=== PATIENT | female | born 1950 | race Caucasian/White ===

== ENCOUNTER → 2024-02-20 09:39 | Outpatient (BNVA) | payer MEDICARE, BC, SELFPAY | PROVIDERS: PCP Student in an Organized Health Care Education/Training Program; Referring Provider Student in an Organized Health Care Education/Training Program; Visit Provider Physical Therapy Assistant | DX: Z12.11 Encounter for screening for malignant neoplasm of colon (principal) ==

== ENCOUNTER 2024-03-06 10:33 | Day surgery (SDC) | payer MEDICARE, BC, SELFPAY ==
[2024-03-06 11:36] VITALS: BP 153/74; PULSE 64; RESP 18; TEMP 36.6; O2SAT 99
[2024-03-06] MEDS: Lactated Ringers 1,000 ML 80 ML IV (12:06)
--- NOTE | 2024-03-06 12:29 | W.ANESPRE ---
General Info Date of Service Date Performed: 03/06/24 Height: 5 ft 4 in Weight: 107 kg Body Mass Index (BMI): 40.4 Surgical Procedure: Operation Date: 03/06/24 11:50 Proposed Procedure Side Surgeon p Burton Burton, Meds Allergies and Home Medications Allergies Allergy/AdvReac Type Severity Reaction Status Date / Time acetaminophen (From Vicodin) Allergy Hives Verified 03/06/24 11:23 atorvastatin (From Lipitor) Allergy Leg Verified 03/06/24 11:23 pain/weakness codeine Allergy Hives Verified 03/06/24 11:23 estrogens, conjugated (From Allergy Nausea, Verified 03/06/24 11:23 Premarin) bloating, cramps hydrocodone Allergy Hives Verified 03/06/24 11:23 simvastatin (From Zocor) Allergy Leg Verified 03/06/24 11:23 pain/weakness strawberry Allergy Hives Verified 03/06/24 11:23 bupropion AdvReac Unable to Verified 03/06/24 11:23 tolerate niacin AdvReac Increased Verified 03/06/24 11:23 [facility] Home Medication ?Medication ?Instructions ?Recorded cholecalciferol (vitamin D3) 25 25 mcg PO DAILY 11/21/23 mcg (1,000 unit) capsule enalapril maleate 20 mg tablet 40 mg PO DAILY 11/21/23 fexofenadine 180 mg tablet 180 mg PO DAILY PRN 11/21/23 (Stephanie Allergy) hydrochlorothiazide 25 mg tablet 25 mg PO DAILY 11/21/23 levothyroxine 125 mcg capsule 125 mcg PO DAILY 11/21/23 omega-3 fatty acids-fish oil 360 1 cap PO DAILY 11/21/23 mg-1,200 mg capsule peg 400-propylene glycol (PF) 0.4 1 drp ophthalmic (eye) BID-QID PRN 11/21/23 %-0.3 % eye drops in a dropperette (Systane (PF)) rosuvastatin 5 mg tablet 5 mg PO DAILY 11/21/23 citalopram 20 mg tablet 20 mg PO DAILY #90 tabs 01/24/24 bisacodyl 5 mg tablet,delayed 5 mg PO ONCE Colonoscopy Bowel 02/20/24 release Prep #4 tabs uvoxrzhv-pwspkpe-jpjx-lutein tablet tab PO 02/20/24 polyethylene glycol 3350 17 238 g PO ONCE #238 grams 02/20/24 gram/dose oral powder Current Visit Medications: Current Medications Generic Name Dose Route Start Last Admin Trade Name Freq PRN Reason Stop Dose Admin Hyoscyamine Sulfate 0.125 mg 03/06/24 08:32 Hyoscyamine 0.125 Mg Sl/Oral/Chew SL 04/05/24 08:31 DIRECTED PRN Ringer's Solution 1,000 mls @ 80 mls/hr 03/06/24 06:00 03/06/24 12:06 IV 03/06/24 23:59 80 mls/hr INFUSION VIK Administration IV Miscellaneous Supplies 1 each 03/06/24 06:00 Iv Access IV 03/06/24 23:59 DIRECTED VIK Ondansetron HCl 4 mg 03/06/24 08:32 Ondansetron 4 Mg/2 Ml Vial IVP 04/05/24 08:31 Q4H PRN PRN Nausea / Vomiting Sodium Chloride 0 ml 03/06/24 06:00 Normal Saline Flush 10 Ml Syr IV 03/06/24 23:59 PRN PRN Sodium Chloride 0 ml 03/06/24 06:00 Normal Saline 10 Ml Vial IJ 03/06/24 23:59 DIRECTED PRN Sterile Water 0 ml 03/06/24 06:00 Water,Injection,Sterile 10 Ml Vial IJ 03/06/24 23:59 DIRECTED PRN PFSH Active Problems Active Problems: Problem Status Onset Code Precancerous skin lesion Acute L98.9 Cataracts, both eyes Acute H26.9 BPPV (benign paroxysmal positional vertigo) Acute H81.10 Weight loss Acute R63.4 Hypothyroidism Chronic E03.9 Essential hypertension Acute I10 Major depressive disorder Chronic F32.9 Medical History Medical History Overweight 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 Osteopenia (05/2016) -2.3 Adenomatous colon polyp (02/2015) Infection of right prosthetic hip joint Surgical History Surgical History History of total right knee replacement (11/2007) Hx of cholecystectomy (2013) History of left hip replacement (11/2005) History of right hip replacement (2011) Tobacco Smoking/Tobacco Use Status: Former Tobacco Use Alcohol Alcohol Intake: current Alcohol intake frequency: holidays/special occasions only Substance Use Substance use: Never Vital Signs and Lab Results Vital Signs Most Recent Vital Signs in EMR: Most Recent Vital Signs Temp Pulse Resp BP Pulse Ox 36.6 C 64 18 153/74 H 99 03/06/24 11:36 03/06/24 11:36 03/06/24 11:36 03/06/24 11:36 03/06/24 11:36 Lab Results Blood Type / Crossmatch: No Data to Display Complete Blood Count: No Data to Display Complete Metabolic Panel: No Data to Display Liver Function Panel: No Data to Display Coagulation Panel: No Data to Display Cardiac Panel: No Data to Display Arterial Blood Gas: No Data to Display Venous Blood Gas: No Data to Display Pancreas Panel: No Data to Display Thyroid Panel: No Data to Display Infectious Disease: No Data to Display Blood Cultures: No Data to Display Toxicology Panel: No Data to Display Anesthesia Assessment and Plan Anesthesia History Personal History: No History of Anesthesia Complications Family History: No Family History of Anesthesia Complications Exercise Tolerance Exercise Tolerance: Metabolic Equivalents>4 Pertinent Negatives Pertinent Negatives: No Symptoms of GERD, No Major Cardiovascular Symptoms or Complaints and No Major Pulmonary Symptoms or Complaints Cardiac & Pulmonary Exam Cardiac Exam: Normal S1/S2 Heart Sounds Pulmonary Exam: Clear Bilateral Breath Sounds Implantable Cardiac Device Does patient have a Pacemaker or an ICD?: No Airway Exam Known Difficult Airway: No Mallampati Class: 2 Mouth Opening: Normal (> 3cm) Thyromental Distance: Greater than 3 cm Neck Range of Motion: Full ROM Neck Circumference: Thick Teeth Condition: Normal Dentition ASA Classification ASA Score: ASA 3 Emergency Case?: No NPO Status NPO Status: NPO Clears >2 hours, Solids >8 hours Anesthesia Plan Resuscitation Status: Full Code Anesthesia Technique: General Anesthesia Airway Planned: Natural Airway Monitors Used: Standard Monitors
--- NOTE | 2024-03-06 13:03 | W.COLOREPORT ---
Date of service: 03/06/24 Time of Service: 13:03 Colonoscopy Report Date of procedure: 03/06/24 Pre-op diagnosis general: History of advanced adenoma Post-op diagnosis procedure note: other (Diverticula) Surgeon: Renita Burton Anesthesia Type: General:No Airway Estimated blood loss (mL): 0 Pathology: none sent Complications: None Disposition: same day Prep: Miralax/Dulcolax Retraction Time: 9 Procedure Description: After informed consent was obtained, explaining risks of the procedure, including but not limits to: bleeding, infections, complications of anesthesia, perforations (which may require antibiotics and /or surgery and stay in the hospital), and abdominal pain/cramping. The patient was taken to the procedure room and placed in a left decubitous position. Monitors were applied and a time out was done. The patients name, date of , procedure, allergies to medications and metal in their body was reviewed. The patient was then sedated. Once sedated and comfortable a rectal exam was done. External exam was normal. Internal exam revealed a normal sphincter tone and no palpable masses. The previously lubricated Olympus scope was then introduced (see RN notes for scope number) and retrofelexed. no internal hemorrhoids were identified. The scope was then advanced to the cecum without difficulty. The TI and appendiceal orifice were identified. The scope was then slowly retracted over 9 minutes back into the rectum. Polyps: None. Diverticula: pt had a moderate amount of large mouthed diverticula in the sigmoid colon. There were no signs of active bleeding or infection. The mucosa is pink and healthy w/ a normal vascular pattern. The scope was removed, and the patient was woken up and taken back to Same day surgery in stable condition. The patient tolerated the procedure well and there were no immediate complications. Follow up: The patient does not require any repeat colonoscopies, unless they develop changes in bowel habits or other new gastrointestinal complaints. [place] Bowel Prep [place] Bowel Prep Right Colon: 3 Left Colon: 2 Transverse Colon: 3 Total Score: 8
[2024-03-06 13:09] VITALS: BMI 40.4
[2024-03-06 13:40] VITALS: BP 111/66; PULSE 60; RESP 20; TEMP 36.7; O2SAT 99
--- NOTE | 2024-03-06 13:51 | PDOC.DSDIS_ITS ---
Date of service: 03/06/24 Time of Service: 13:51 Discharge Plan Disposition Patient Disposition: Home Condition: Good Discharge Details Reason For Visit: Colon scope Attending Provider: Renita Burton Primary Care Provider: Maura Duggan Home Meds and New Rx's Prescriptions: Continued busbrhrg-usdepkb-wamd-lutein Tablet PO enalapril maleate 20 mg tablet 40 mg PO DAILY rosuvastatin 5 mg tablet 5 mg PO DAILY hydrochlorothiazide 25 mg tablet 25 mg PO DAILY levothyroxine 125 mcg capsule 125 mcg PO DAILY omega-3 fatty acids-fish oil 360-1,200 mg capsule 1 cap PO DAILY cholecalciferol (vitamin D3) 25 mcg (1,000 unit) capsule 25 mcg PO DAILY fexofenadine [Stephanie Allergy] 180 mg tablet 180 mg PO DAILY PRN Systane (PF) 0.4-0.3 % dropperette 1 drp ophthalmic (eye) BID-QID PRN citalopram 20 mg tablet 20 mg PO DAILY Qty: 90 3RF Discontinued bisacodyl 5 mg tablet,delayed release (DR/EC) 5 mg PO ONCE Qty: 4 0RF Rx Instructions: Per Colonoscopy bowel prep instructions polyethylene glycol 3350 17 gram/dose powder 238 g PO ONCE Qty: 238 0RF Rx Instructions: For Colonoscopy bowel prep, as directed by office Discharge Instructions Additional Instructions: [facility] Colonoscopy Post- Op Instructions Instructions for Everyone who is given Anesthesia: For your safety, please do the following for the next twenty-four (24) hours: *Do Not operate a motor vehicle (car, truck, motorcycle, etc.) *Do Not drink alcoholic beverages or use any recreational drugs for the first 24 hours or while taking pain medications. The medications in your body may have a reaction that can be dangerous. *Do Not make any important decisions or sign any important papers. Findings: Diverticula-sure you are moving your bowels on a regular basis and not straining to go to the bathroom. If you find you are having problems with straining/constipation, that is recommended you start a fiber supplement daily such as Metamucil. Follow up: No further routine screening colonoscopies required Of course, you should continue to have a yearly physical exam including a rectal exam. If you should ever notice any pain or difficulty having a bowel movement, blood in the stool, unexplained weight loss, or change in your bowel habits, please contact your health provider. 1. No lifting over 20 pounds or strenuous activity for the first 24 hours after your procedure. After 24 hours there are no restrictions on your activity but you may feel fatigued for a few days. 2. After you arrive home you may have a light meal and return to your normal diet as you can tolerate it without feeling sick to your stomach. 3. You may have a bloated, gaseous feeling in your belly (abdomen) after a co lonoscopy. Passing gas and belching will help. Walking or lying down on your left side with your knees flexed may relieve the discomfort. Call the office at [phone] (Office) or [phone] (Hospital) right away if you notice any of the following: a.Vomiting of blood or ?coffee ground stools?. b.Rectal bleeding 1Tbsp, blood clots or continuous bleeding. c.Severe belly (abdominal) pain. d.A hard distended belly (abdomen) and an inability to pass gas. 4. Please don?t expect to have a normal BM (bowel movement) for 2-3 days after your procedure. 5. If there are questions regarding the findings of your procedure, please contact your doctor 6. If you are unable to contact your doctor with a problem, contact the hospital at [phone]. 7. Continue all your regular medications unless directed otherwise. I understand the above instructions and have no questions. Signature of Patient or Adult Escort Name of Responsible Adult Escort Signature of Nurse Date/Time Stand Alone Forms: Anesthesia Discharge Inst., Maurice Ferrell ([facility]) Activity:: see above Diet:: see above Discharge Orders Discharge Orders: Discharge Order (Routine); Ordered 03/06/24 Ordered By: Renita Burton DS: Diagnosis Discharge Diagnosis (1) Diverticula of colon: Status: Acute
[2024-03-06 14:01] VITALS: BP 143/74; PULSE 56; RESP 18; TEMP 36.7; O2SAT 100
--- NOTE | 2024-03-06 14:41 | W.ANESPOSTOP ---
Postoperative Evaluation Date, Time and Location Date Performed: 03/06/24 Time Performed: 14:04 Patient Location: Day Surgery Unit Vital Signs Most Recent Imported Vital Signs: Most Recent Vital Signs Temp Pulse Resp BP Pulse Ox 36.7 C 56 L 18 143/74 H 100 03/06/24 14:01 03/06/24 14:01 03/06/24 14:01 03/06/24 14:01 03/06/24 14:01 Pain Score Most Recent Pain Score: Most Recent Pain Score Pain Level 0 03/06/24 14:01 Assessment Mental Status: Awake (Alert & Oriented to Patient Baseline) Airway and Respiratory Function: Patent airway with normal (patient baseline) respiratory exam Cardiovascular Function: Hemodynamically Stable Hydration Status: Adequately Hydrated Nausea & Vomiting: No Nausea or Vomiting Pain: Pt. Denies Any Pain Peripheral Nerve Block: Patient did not receive a nerve block
== END 2024-03-06 14:20 | disposition home or self-care (01) ==
PROVIDERS: PCP Student in an Organized Health Care Education/Training Program; Visit Provider Surgery
PROC: 0DJD8ZZ Inspection of Lower Intestinal Tract, Via Natural or Artificial Opening Endoscopic (ICD-10-PCS; CPT 45378; principal; 2024-03-06 11:45)
DX: Z12.11 Encounter for screening for malignant neoplasm of colon (principal); K57.30 Diverticulosis of large intestine without perforation or abscess without bleeding
CPT/HCPCS: G0105; J2371; J2704

== ENCOUNTER 2024-03-11 02:38 | Outpatient (CLI) | payer MEDICARE, BC, SELFPAY ==
[2024-03-11 09:15] LABS: HCT 39.2 % (36.0-46.0); HGB 12.7 g/dL (11.2-15.7); MCH 30.9 pg (27.0-33.0); MCHC 32.4 % (32.0-36.0); MCV 95 fL (80-95); Platelet Count 274 10^3/uL (130-400); RBC 4.11 10^6/uL (3.93-5.22); RDW 12.7 % (11.7-14.6); RDW-SD 44.9 fL; WBC 4.58 10^3/uL (4.4-10.8)
[2024-03-11 09:59] LABS: ALT 26 U/L (14-59); AST 24 U/L (15-37); Albumin 3.4 g/dL (3.4-5.0); Alkaline Phosphatase 92 U/L (46-116); Anion Gap 5.1 mmol/L (3-11); BUN 27 mg/dL (7-18); Bilirubin, Total 0.41 mg/dL (0.2-1.0); CO2 30.9 mmol/L (21.0-32.0); CREATININE 0.9 mg/dL (0.55-1.02); Calcium 9.4 mg/dL (8.5-10.1); Calculated LDL 105 mg/dL (<100); Chloride 96 mmol/L (98-107); Cholesterol 202 mg/dL (<200); Estimated GFR 67.08 (mL/min/1.73m2); Glucose 89 mg/dL (74-106); HDL Cholesterol 79 mg/dL (40-60); Potassium 4.6 mmol/L (3.5-5.1); Sodium 132 mmol/L (136-145); TSH (W/Ref FT4) 2.09 uIU/mL (0.36-3.74); Total Protein 7.4 g/dL (6.4-8.2); Triglyceride 92 mg/dL (<150); Vitamin D 25 Total 48.2 ng/mL (30-100)
== END 2024-03-11 02:39 | disposition home or self-care (01) ==
LOC: LBO 02:38
PROVIDERS: PCP Student in an Organized Health Care Education/Training Program; Visit Provider Student in an Organized Health Care Education/Training Program
DX: F32.9 Major depressive disorder, single episode, unspecified (principal); I10 Essential (primary) hypertension; E03.9 Hypothyroidism, unspecified; E66.3 Overweight; Z13.220 Encounter for screening for lipoid disorders; K90.9 Intestinal malabsorption, unspecified
CPT/HCPCS: 36415; 80053; 80061; 82306; 85027; 84443

== ENCOUNTER → 2024-06-16 08:35 | Outpatient (BNVA) | payer MEDICARE, BC, SELFPAY | PROVIDERS: PCP Student in an Organized Health Care Education/Training Program; Referring Provider Student in an Organized Health Care Education/Training Program; Visit Provider Psychiatry & Neurology Neurology | DX: H81.13 Benign paroxysmal vertigo, bilateral (principal) | CPT/HCPCS: 99214 ==

== ENCOUNTER 2024-07-13 15:48 | Outpatient (CLI) | payer MEDICARE, BC, SELFPAY ==
--- NOTE | 2024-07-13 10:30 | DI.RAD_ITS ---
Exam(s) XR KNEE LT 4V AP,LAT,TARAS,PAT EXAM: XR KNEE LT 4V AP,LAT,TARAS,PAT CLINICAL HISTORY: left knee pain. TECHNIQUE: 2D digital imaging was performed of the left knee. Four images were obtained. Merchant, AP, lateral and PA tunnel views were obtained. COMPARISON: No exams were available for comparison FINDINGS: BONES: No acute fracture is present. No bony destructive lesion is seen. There is benign-appearing s imple cysts seen in the lateral femoral condyle. JOINTS: There is moderate narrowing of the lateral femoral tibial joint. There is marked narrowing o f the patellofemoral joint. There osteophytes involving the lateral femoral tibial patellofemoral elie ints. No joint effusion is seen. No loose body. SOFT TISSUE: Atherosclerotic calcification is present. IMPRESSION: Marked osteoarthritis of the left knee. DATA REPOSITORY: RADIATION DOSE DELIVERED:
--- NOTE | 2024-07-13 10:30 | DI.RAD_ITS ---
Exam(s) XR HIP LT COMPLETE AP PELVIS EXAM: XR HIP LT COMPLETE AP PELVIS CLINICAL HISTORY: left TOMMIE. TECHNIQUE: 2D digital imaging was performed. Two images were obtained. AP pelvis and lateral left h ip views were obtained. COMPARISON: No exams were available for comparison FINDINGS: BONES: There are stable post operative changes of a left total hip arthroplasty present. No fracture or dislocation. There is some deformity of the left pubic bone which may represent an old healed fra cture deformity. The patient has a right total hip arthroplasty which is incompletely imaged. JOINTS: The orthopedic hardware is in good position. No evidence of hardware loosening. SOFT TISSUE: Normal. IMPRESSION: Unremarkable left total hip arthroplasty. DATA REPOSITORY: RADIATION DOSE DELIVERED:
== END 2024-07-13 15:49 | disposition home or self-care (01) ==
LOC: DIORS 15:48
PROVIDERS: PCP Family Medicine; Referring Provider Family Medicine; Visit Provider Student in an Organized Health Care Education/Training Program
DX: M17.12 Unilateral primary osteoarthritis, left knee; M70.62 Trochanteric bursitis, left hip
CPT/HCPCS: 20610; 99213; J1010; 73502; 73564

== ENCOUNTER 2024-07-31 09:44 | Day surgery (SDC) | payer MEDICARE, BC, SELFPAY ==
[2024-07-31] VITALS (24 sets, daily range): BP systolic 89–128; BP diastolic 37–71; PULSE 52–65; RESP 14–24; TEMP 36.2–36.6; O2SAT 94–100; BMI 41.7
[2024-07-31] MEDS: Tropicam./Phenyleph. (1/2.5%) 5 ML BTL OU ×3 (10:34→10:50)
--- NOTE | 2024-07-31 10:53 | W.ANESPRE ---
General Info Date of Service Date Performed: 07/31/24 Height: 5 ft 4 in Weight: 110.3 kg Body Mass Index (BMI): 41.7 Surgical Procedure: Operation Date: 07/31/24 13:10 Proposed Procedure Side Surgeon p Cataract Extraction with IOL Implant Bilateral Alexandru Lee MD Meds Allergies and Home Medications Allergies Allergy/AdvReac Type Severity Reaction Status Date / Time atorvastatin (From Lipitor) Allergy Leg Verified 07/31/24 10:26 pain/weakness codeine Allergy Hives Verified 07/31/24 10:26 estrogens, conjugated (From Allergy Nausea, Verified 07/31/24 10:26 Premarin) bloating, cramps hydrocodone Allergy Hives Verified 07/31/24 10:26 simvastatin (From Zocor) Allergy Leg Verified 07/31/24 10:26 pain/weakness strawberry Allergy Hives Verified 07/31/24 10:26 bupropion AdvReac Unable to Verified 07/31/24 10:26 tolerate niacin AdvReac Increased Verified 07/31/24 10:26 [facility] Home Medication ?Medication ?Instructions ?Recorded cholecalciferol (vitamin D3) 25 25 mcg PO DAILY 11/21/23 mcg (1,000 unit) capsule fexofenadine 180 mg tablet 180 mg PO DAILY PRN 11/21/23 (Stephanie Allergy) omega-3 fatty acids-fish oil 360 1 cap PO DAILY 11/21/23 mg-1,200 mg capsule peg 400-propylene glycol (PF) 0.4 1 drp ophthalmic (eye) BID-QID PRN 11/21/23 %-0.3 % eye drops in a dropperette (Systane (PF)) citalopram 20 mg tablet 20 mg PO DAILY #90 tabs 01/24/24 xaiiczfg-ejungkt-yrvk-lutein tablet 1 tab PO DAILY 02/20/24 enalapril maleate 20 mg tablet 40 mg (2 x 20 mg) PO DAILY #180 03/13/24 tabs rosuvastatin 5 mg tablet 5 mg PO DAILY #90 tabs 03/13/24 hydrochlorothiazide 25 mg tablet 25 mg PO DAILY #90 tabs 07/02/24 levothyroxine 125 mcg tablet 125 mcg PO DAILY #90 tabs 07/06/24 Current Visit Medications: Current Medications Generic Name Dose Route Start Last Admin Trade Name Freq PRN Reason Stop Dose Admin Acetaminophen 1,000 mg 07/31/24 06:00 Acetaminophen 500 Mg Tab PO 08/30/24 05:59 Q4H PRN PRN Balanced Salt Solution 500 ml 07/31/24 06:00 Balanced Salt Soln.-Plus 500 Ml Bag OP 08/30/24 05:59 DIRECTED VIK Ringer's Solution 500 mls @ 30 mls/hr 07/31/24 10:55 IV 08/30/24 10:54 INFUSION VIK Miscellaneous Medication 0 ml 07/31/24 06:00 Prednisolone 1%, Moxifloxacin 0.5%, Bromfenac 0.09% 5.6ml Btl OU 08/30/24 05:59 DIRECTED VIK Miscellaneous Medication 0 ml 07/31/24 06:00 Tropicam./Phenyleph. (1/2.5%) 5 Ml Btl OU 08/30/24 05:59 DIRECTED VIK Tetracaine HCl 0 ml 07/31/24 06:00 Tetracaine 0.5% 4 Ml Btl OU 08/30/24 05:59 DIRECTED VIK PFSH Active Problems Active Problems: Problem Status Onset Code Posterior subcapsular age-related cataract of left eye Acute H25.042 Cortical age-related cataract, left eye Acute H25.012 Nuclear age-related cataract, left eye Acute H25.12 Posterior subcapsular age-related cataract, right eye Acute H25.041 Cortical age-related cataract, right eye Acute H25.011 Nuclear age-related cataract, right eye Acute H25.11 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 Trochanteric bursitis, left hip Acute M70.62 BPPV (benign paroxysmal positional vertigo) Acute H81.10 Weight loss Acute R63.4 Hypothyroidism Chronic E03.9 Essential hypertension Acute I10 Major depressive disorder Chronic F32.9 Medical History Medical History Diverticula of colon Precancerous skin lesion Nose, s/p FU Tx Cataracts, both eyes [place] Overweight 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 Osteopenia (05/2016) -2.3 Adenomatous colon polyp (02/2015) Infection of right prosthetic hip joint Surgical History Surgical History History of colonoscopy (~02/2024) History of total right knee replacement (11/2007) Hx of cholecystectomy (2013) History of left hip replacement (11/2005) History of right hip replacement (2011) Tobacco Smoking/Tobacco Use Status: Former Tobacco Use Alcohol Alcohol Intake: current Alcohol intake frequency: holidays/special occasions only Substance Use Substance use: Never Substance use type: does not use Vital Signs and Lab Results Vital Signs Most Recent Vital Signs in EMR: Most Recent Vital Signs Temp Pulse Resp BP Pulse Ox 36.2 C L 65 16 128/71 99 07/31/24 10:08 07/31/24 10:08 07/31/24 10:08 07/31/24 10:08 07/31/24 10:08 Lab Results Blood Type / Crossmatch: No Data to Display Complete Blood Count: No Data to Display Complete Metabolic Panel: No Data to Display Liver Function Panel: No Data to Display Coagulation Panel: No Data to Display Cardiac Panel: No Data to Display Arterial Blood Gas: No Data to Display Venous Blood Gas: No Data to Display Pancreas Panel: No Data to Display Thyroid Panel: No Data to Display Infectious Disease: No Data to Display Blood Cultures: No Data to Display Toxicology Panel: No Data to Display Anesthesia Assessment and Plan Anesthesia History Personal History: No History of Anesthesia Complications Family History: No Family History of Anesthesia Complications Exercise Tolerance Exercise Tolerance: Metabolic Equivalents>4 Pertinent Negatives Pertinent Negatives: No Major Cardiovascular Symptoms or Complaints and No Major Pulmonary Symptoms or Complaints Cardiac & Pulmonary Exam Cardiac Exam: Normal S1/S2 Heart Sounds Pulmonary Exam: Clear Bilateral Breath Sounds Implantable Cardiac Device Does patient have a Pacemaker or an ICD?: No Airway Exam Known Difficult Airway: No Mallampati Class: 2 Mouth Opening: Normal (> 3cm) Thyromental Distance: Greater than 3 cm Neck Range of Motion: Full ROM Neck Circumference: Thick Teeth Condition: Normal Dentition ASA Classification ASA Score: ASA 2 Emergency Case?: No NPO Status NPO Status: NPO Clears >2 hours, Solids >8 hours Anesthesia Plan Resuscitation Status: Full Code Anesthesia Technique: General Anesthesia Airway Planned: LMA Monitors Used: Standard Monitors
[2024-07-31] MEDS: Lactated Ringers 500 ML 30 ML IV (10:54)
[2024-07-31] MEDS: Tetracaine 0.5% 4 ML BTL OU ×2 (12:00→12:47)
[2024-07-31] MEDS: Povidone-Iodine Ophth 30 ML BTL ×2 (12:00→12:40)
[2024-07-31] MEDS: Balanced Salt Soln.-PLUS 500 ML BAG OP ×2 (12:18→12:46)
[2024-07-31] MEDS: Duovisc Viscoelastic System EACH 1 EACH ×2 (12:18→12:44)
[2024-07-31] MEDS: Lidocaine 1% Pres-Free 5 ML VIAL ×2 (12:19→12:45)
[2024-07-31] MEDS: Phenylephrine/Lidocaine (15/10) MG/ML 1 ML VIAL ×2 (12:20→12:45)
[2024-07-31] MEDS: Prednisolone 1%, Moxifloxacin 0.5%, Bromfenac 0.09% 5.6ML BTL OU ×2 (12:24→12:55)
--- NOTE | 2024-07-31 13:14 | W.PM.DSUDISC ---
Date of service: 07/31/24 Discharge Plan Disposition Patient Disposition: Home Discharge Details Attending Provider: Alexandru Lee Primary Care Provider: Edmundo Contreras Home Meds and New Rx's Prescriptions: No Action enalapril maleate 20 mg tablet 40 mg PO DAILY Qty: 180 3RF rosuvastatin 5 mg tablet 5 mg PO DAILY Qty: 90 3RF szqdfrdi-jghgexi-qshn-lutein Tablet 1 tab PO DAILY levothyroxine 125 mcg tablet 125 mcg PO DAILY Qty: 90 3RF omega-3 fatty acids-fish oil 360-1,200 mg capsule 1 cap PO DAILY cholecalciferol (vitamin D3) 25 mcg (1,000 unit) capsule 25 mcg PO DAILY fexofenadine [Stephanie Allergy] 180 mg tablet 180 mg PO DAILY PRN Systane (PF) 0.4-0.3 % dropperette 1 drp ophthalmic (eye) BID-QID PRN citalopram 20 mg tablet 20 mg PO DAILY Qty: 90 3RF hydrochlorothiazide 25 mg tablet 25 mg PO DAILY Qty: 90 3RF Discharge Instructions Stand Alone Forms: [facility] Post-Op CataractMaurice ([facility]) Discharge Orders Discharge Orders: Discharge Order (Routine); Ordered 07/31/24 Ordered By: Alexandru Lee DS: Diagnosis Discharge Diagnosis (1) Posterior subcapsular age-related cataract of left eye: Status: Resolved (2) Cortical age-related cataract, left eye: Status: Resolved (3) Nuclear age-related cataract, left eye: Status: Resolved (4) Posterior subcapsular age-related cataract, right eye: Status: Resolved (5) Cortical age-related cataract, right eye: Status: Resolved (6) Nuclear age-related cataract, right eye: Status: Resolved
--- NOTE | 2024-07-31 13:15 | ROE_ITS ---
Operative Note Operative Note PRE-OP DIAGNOSIS: Nuclear/cortical/posterior subcapsular cataract, both eyes POST-OP DIAGNOSIS: same PROCEDURE: Immediately sequential bilateral cataract extraction using phacoemulsification with intraocular lens implants, both eyes SURGEON: Alexandru Lee Refer to Anesthesia Record PATHOLOGY: none sent COMPLICATIONS: None Patient was transported to: same day Patient's condition: stable Implants: Josue Clareon [id number] intraocular lenses both eyes Indications: Progressive decreased vision due to cataract, both eyes Procedure Description: CATARACT SURGERY OPERATIVE REPORT PREOPERATIVE DIAGNOSIS: Nuclear/cortical/posterior subcapsular cataract, both eyes Poorly dilating pupil, left eye POSTOPERATIVE DIAGNOSIS: Same OPERATION: Bilateral sequential cataract extraction using phacoemulsification with posterior chamber intraocular lens implant, both eyes Pupillary dilation and iris stabilization with pupillary expansion device, left eye IOL OS: IOL Emergency Response Technician/Model: Josue Clareon [id number] IOL Power: + 18.5 diopters IOL Serial Number: [id number] Optic Diameter: 6.0mm Haptic/Overall Diameter: 13.0mm PHACO INFO OS: Josue Centurion Vision System with OZil and Active Fluidics Cumulative Dispersed Energy (CDE): 8.83 seconds IOL OD: IOL Emergency Response Technician/Model: Josue Clareon [id number] IOL Power: + 19.0 diopters IOL Serial Number: [id number] Optic Diameter: 6.0mm Haptic/Overall Diameter: 13.0mm PHACO INFO OD: Josue [employer]ion Vision System with OZil and Active Fluidics Cumulative Dispersed Energy (CDE): 8.23 seconds SURGEON: Alexandru Lee MD, ADRIANA ANESTHESIA: General/LMA/Monitored Anesthesia Care (MAC), with local sub-tenon's anesthetic infiltration COMPLICATIONS: None SPECIMENS: None INDICATIONS FOR PROCEDURE: The patient is a 74-year-old lady with history of severe positional vertigo who has developed significant bilateral nuclear/cortical/posterior subcapsular cataract. She is significantly symptomatic from her cataract that she desires cataract surgery and attempt to improve and maximize her vision, however she cannot lie flat. Surgery is planned under general/LMA anesthesia, and bilateral same-day surgery will be performed. PROCEDURE: The correct surgical eye was identified and marked as both eyes and the pupils were dilated in the preoperative area using mydriatics and cycloplegics. The dilated pupil size was 5.5 mm right eye, 4.0 left eye. Intravenous access was obtained. The patient was brought to the operating room where cardiopulmonary monitoring was instituted and surgical time-out was performed, confirming the correct operative eye and IOL power. Attention was first directed to the left eye. Topical anesthesia was administered and ophthalmic povidone-iodine 5% was instilled into the conjunctival fornices. Lidocaine gel was applied to the cornea and the krystal-ocular area was prepped with Betadine 10% solution and draped in the usual sterile fashion for intraocular surgery, including an aperture drape. A Tegaderm transparent film dressing was cut in half and used to cover the lashes and lid margins. Care was taken to sequester the lashes and lid margins under the Tegaderm dressing. A lid speculum was placed between the lids of the operative eye and the operating microscope was maneuvered into position. Nichelle scissors were then used to make a conjunctival buttonhole approximately 6mm posterior to the limbus in the inferonasal quadrant. Blunt dissection was carried out to expose bare sclera, and a blunt-tipped sub-tenon?s anesthesia cannula was introduced and passed posteriorly along the globe where non- preserved plain lidocaine was injected into posterior sub-Tenon?s space. A sideport knife was used to make a paracentesis port.. Intraocular phenylephrine/lidocaine was injected into the anterior chamber. The anterior chamber was filled with viscoelastic. . A keratome knife was used to construct a temporal clear corneal tunnel extending approximately 2.0mm into clear cornea. A 6.25 mm pupillary expansion device was inserted into the pupillary space and engaged with the Kuglen hook.. A flap was raised on the anterior capsule and capsulorhexis forceps were used to complete a continuous curvilinear capsulorhexis of 5.0 mm. Balanced salt solution was then used to perform cortical cleaving hydrodissection and nuclear hydrodelineation until the lens could be freely rotated within the capsular bag. The lens nucleus was then disassembled and removed within the capsular bag and iris plane using phacoemulsification. Residual cortical material was removed using the 45-degree angled silicone I/A tip with 0.3mm port. The posterior capsule was carefully polished to remove as much residual lens epithelial cells as safely possible. The capsular bag was then inflated and the anterior chamber deepened with cohesive viscoelastic. The lens implant described above was inserted into the capsular bag using the Josue Autonome pre-loaded injector.. A Kuglen hook was used to dial the IOL into position. The pupil expansion device was then removed in the reverse order its its insertion. Residual viscoelastic was then removed first from posterior to the IOL, then from the anterior chamber using the I/A handpiece. The lens implant was noted to center nicely within the capsular bag. The incisions were stromally hydrated, and the anterior chamber was reformed using BSS. Then 0.4cc of moxifloxacin 1.5mg/ml were injected into the capsular bag and anterior chamber. The incisions were checked with a Weck spear and found to be secure. Several drops of ophthalmic povidone-iodine 5% were then applied to the eye followed by two drops of topical combination antibiotic/steroids/NSAID solution. The drapes were removed and a clear plastic protective eye shield was placed over the eye. Attention was then directed toward the right eye, where an entirely new set of instruments, tubing, medications, fluids, gowns, gloves, and drapes were used. Topical anesthesia was administered and ophthalmic povidone-iodine 5% was instilled into the conjunctival fornices. Lidocaine gel was applied to the cornea and the krystal-ocular area was prepped with Betadine 10% solution and draped in the usual sterile fashion for intraocular surgery, including an aperture drape. A Tegaderm transparent film dressing was cut in half and used to cover the lashes and lid margins. Care was taken to sequester the lashes and lid margins under the Tegaderm dressing. A lid speculum was placed between the lids of the operative eye and the operating microscope was maneuvered into position. Nichelle scissors were then used to make a conjunctival buttonhole approximately 6mm posterior to the limbus in the inferonasal quadrant. Blunt dissection was carried out to expose bare sclera, and a blunt-tipped sub-tenon?s anesthesia cannula was introduced and passed posteriorly along the globe where non- preserved plain lidocaine was injected into posterior sub-Tenon?s space. A sideport knife was used to make a paracentesis port.. Intraocular phenylephrine/lidocaine was injected into the anterior chamber. The anterior chamber was filled with viscoelastic. . A keratome knife was used to construct a temporal clear corneal tunnel extending approximately 2.0mm into clear cornea.. A flap was raised on the anterior capsule and capsulorhexis forceps were used to complete a continuous curvilinear capsulorhexis of 5.0 mm. Balanced salt solution was then used to perform cortical cleaving hydrodissection and nuclear hydrodelineation until the lens could be freely rotated within the capsular bag. The lens nucleus was then disassembled and removed within the capsular bag and iris plane using phacoemulsification. Residual cortical material was removed using the 45-degree angled silicone I/A tip with 0.3mm port. The posterior capsule was carefully polished to remove as much residual lens epithelial cells as safely possible. The capsular bag was then inflated and the anterior chamber deepened with cohesive viscoelastic. The lens implant described above was inserted into the capsular bag using the Josue Autonome pre-loaded injector.. A Kuglen hook was used to dial the IOL into position. Residual viscoelastic was then removed first from posterior to the IOL, then from the anterior chamber using the I/A handpiece. The lens implant was noted to center nicely within the capsular bag. The incisions were stromally hydrated, and the anterior chamber was reformed using BSS. Then 0.4cc of moxifloxacin 1.5mg/ml were injected into the capsular bag and anterior chamber. The incisions were checked with a Weck spear and found to be secure. Several drops of ophthalmic povidone-iodine 5% were then applied to the eye followed by two drops of combination antibiotic/steroid/NSAID solution. The drapes were removed and a clear plastic protective eye shield was placed over the eye. The patient was then returned to Same Day Surgery in stable condition. Date of Procedure: 07/31/24
--- NOTE | 2024-07-31 13:25 | W.ANESPOSTOP ---
Postoperative Evaluation Date, Time and Location Date Performed: 07/31/24 Time Performed: 13:25 Patient Location: Day Surgery Unit Vital Signs Most Recent Imported Vital Signs: Most Recent Vital Signs Temp Pulse Resp BP Pulse Ox 36.5 C 56 L 16 110/44 L 97 07/31/24 13:21 07/31/24 13:21 07/31/24 13:21 07/31/24 13:21 07/31/24 13:21 Pain Score Most Recent Pain Score: Most Recent Pain Score Pain Level 0 07/31/24 13:23 Assessment Mental Status: Arousable with meaningful communication Airway and Respiratory Function: Patent airway with normal (patient baseline) respiratory exam Cardiovascular Function: Hemodynamically Stable Hydration Status: Adequately Hydrated Nausea & Vomiting: No Nausea or Vomiting Pain: Pt. Denies Any Pain Peripheral Nerve Block: Patient did not receive a nerve block
== END 2024-07-31 14:59 | disposition home or self-care (01) ==
LOC: SUR 09:45
PROVIDERS: PCP Family Medicine; Visit Provider Ophthalmology
PROC: (CPT 66982; principal; 2024-07-31 13:00)
DX: H25.042 Posterior subcapsular polar age-related cataract, left eye (principal); H25.012 Cortical age-related cataract, left eye; H25.12 Age-related nuclear cataract, left eye; H25.041 Posterior subcapsular polar age-related cataract, right eye; H25.011 Cortical age-related cataract, right eye; H25.11 Age-related nuclear cataract, right eye
CPT/HCPCS: 66982; 66984; 00123; V2632; J1100; J2003; J2250; J2371; J2405; J2704

== ENCOUNTER 2024-09-25 00:19 | Outpatient (CLI) | payer MEDICARE, BC, SELFPAY ==
[2024-09-25 10:34] LABS: HCT 39.3 % (36.0-46.0); HGB 13.2 g/dL (11.2-15.7); MCH 31.7 pg (27.0-33.0); MCHC 33.6 % (32.0-36.0); MCV 95 fL (80-95); MPV 9.6 fL (8.0-11.0); Platelet Count 291 10^3/uL (130-400); RBC 4.16 10^6/uL (3.93-5.22); RDW 13.2 % (11.7-14.6); RDW-SD 45.3 fL; WBC 5.75 10^3/uL (4.4-10.8)
[2024-09-25 10:58] LABS: BUN 34 mg/dL (7-18); Calcium 9.9 mg/dL (8.5-10.1); Chloride 99 mmol/L (98-107); Estimated GFR 59.12 (mL/min/1.73m2); Glucose 93 mg/dL (74-106); Potassium 4.7 mmol/L (3.5-5.1); Sodium 136 mmol/L (136-145)
== END 2024-09-25 00:20 | disposition home or self-care (01) ==
LOC: LBO 00:19
PROVIDERS: PCP Family Medicine; Visit Provider Student in an Organized Health Care Education/Training Program
DX: Z01.818 Encounter for other preprocedural examination (principal); M17.12 Unilateral primary osteoarthritis, left knee
CPT/HCPCS: 36415; 80048; 85027

== ENCOUNTER 2024-09-25 12:27 | Outpatient (CLI) | payer MEDICARE, BC, SELFPAY ==
--- NOTE | 2024-09-25 09:27 | DI.RAD_ITS ---
Exam(s) XR STANDING ALIGNMENT EXAM: XR STANDING ALIGNMENT CLINICAL HISTORY: PRE OP L TKA. TECHNIQUE: 2D digital imaging was performed. Standing AP views were performed from the pelvis throu gh the ankles. COMPARISON: CR XR HIP LT COMPLETE AP PELVIS from 07/13/2024 CR XR KNEE LT 4V AP,LAT,TARAS,PAT from 07/13/2024 FINDINGS: BONES: No acute fracture is present. No bony destructive lesion is seen. Leg length discrepancy: The left iliac crest projects roughly 1 cm superior to the right. JOINTS: Knees: Right total knee prosthesis. Narrowing and spurring of the lateral femoral tibial jonatan nt space of the left knee. The ankle joints are unremarkable. Hips: Stable appearance of bilateral hip prostheses. SOFT TISSUE: Normal. IMPRESSION: Advanced degenerative changes of the lateral femoral tibial joint space of the left knee . Unremarka ble right knee prosthesis Mild overall leg length discrepancy. DATA REPOSITORY: RADIATION DOSE DELIVERED:
== END 2024-09-25 12:28 | disposition home or self-care (01) ==
LOC: DIORS 12:28
PROVIDERS: PCP Family Medicine; Visit Provider Physician Assistant
DX: M17.12 Unilateral primary osteoarthritis, left knee (principal); Z01.818 Encounter for other preprocedural examination
CPT/HCPCS: 36415; 80048; 85027; 99214; 77073

== ENCOUNTER 2024-10-07 08:21 | Day surgery (SDC) | payer MEDICARE, BC, SELFPAY ==
[2024-10-07] VITALS (36 sets, daily range): BP systolic 95–145; BP diastolic 45–76; PULSE 51–67; RESP 9–19; TEMP 36.1–36.6; O2SAT 86–100; BMI 42.5
--- NOTE | 2024-10-07 06:24 | ANES.PREOP_ITS ---
General Info Date of Service Date Performed: 10/07/24 Height: 5 ft 4 in Weight: 112.27 kg Body Mass Index (BMI): 42.5 Surgical Procedure: Operation Date: 10/07/24 11:40 Proposed Procedure Side Surgeon p Knee Total Arthroplasty Left Pato Galindo MD Meds Allergies and Home Medications Allergies Allergy/AdvReac Type Severity Reaction Status Date / Time atorvastatin (From Lipitor) Allergy Leg Verified 10/07/24 09:00 pain/weakness codeine Allergy Hives Verified 10/07/24 09:00 estrogens, conjugated (From Allergy Nausea, Verified 10/07/24 09:00 Premarin) bloating, cramps hydrocodone Allergy Hives Verified 10/07/24 09:00 simvastatin (From Zocor) Allergy Leg Verified 10/07/24 09:00 pain/weakness strawberry Allergy Hives Verified 10/07/24 09:00 bupropion AdvReac Unable to Verified 10/07/24 09:00 tolerate niacin AdvReac Increased Verified 10/07/24 09:00 [facility]DH Home Medication ?Medication ?Instructions ?Recorded cholecalciferol (vitamin D3) 25 25 mcg PO DAILY 11/21/23 mcg (1,000 unit) capsule fexofenadine 180 mg tablet 180 mg PO DAILY PRN 11/21/23 (Stephanie Allergy) omega-3 fatty acids-fish oil 360 1 cap PO DAILY 11/21/23 mg-1,200 mg capsule peg 400-propylene glycol (PF) 0.4 1 drp ophthalmic (eye) BID-QID PRN 11/21/23 %-0.3 % eye drops in a dropperette (Systane (PF)) citalopram 20 mg tablet 20 mg PO DAILY #90 tabs 01/24/24 psrygelc-njommlp-vqiy-lutein tablet 1 tab PO DAILY 02/20/24 enalapril maleate 20 mg tablet 40 mg (2 x 20 mg) PO DAILY #180 03/13/24 tabs rosuvastatin 5 mg tablet 5 mg PO DAILY #90 tabs 03/13/24 hydrochlorothiazide 25 mg tablet 25 mg PO DAILY #90 tabs 07/02/24 levothyroxine 125 mcg tablet 125 mcg PO DAILY #90 tabs 07/06/24 acetaminophen 500 mg tablet 1,000 mg (2 x 500 mg) PO TID #90 10/07/24 tabs aspirin 81 mg tablet,delayed 81 mg PO BID #60 tabs 10/07/24 release celecoxib 200 mg capsule 200 mg PO BID #60 caps 10/07/24 dexamethasone 4 mg tablet 4 mg PO DAILY #2 tabs 10/07/24 docusate sodium 100 mg capsule 100 mg PO BID PRN #14 caps 10/07/24 gabapentin 300 mg capsule 300 mg PO QHS #14 caps 10/07/24 oxycodone 5 mg tablet 5 mg PO Q4H PRN #18 tabs 10/07/24 pantoprazole 40 mg tablet,delayed 40 mg PO DAILY #30 tabs 10/07/24 release Current Visit Medications: Current Medications Generic Name Dose Route Start Last Admin Trade Name Freq PRN Reason Stop Dose Admin Acetaminophen 1,000 mg 10/07/24 06:00 Acetaminophen 500 Mg Tab PO 10/07/24 23:59 PREOP VIK Celecoxib 400 mg 10/07/24 06:00 Celecoxib 200 Mg Cap PO 10/07/24 23:59 PREOP VIK Gabapentin 300 mg 10/07/24 06:00 Gabapentin 300 Mg Cap PO 10/07/24 23:59 PREOP VIK Ringer's Solution 1,000 mls @ 80 mls/hr 10/07/24 06:00 IV 10/07/24 23:59 INFUSION VIK Cefazolin Sodium/Dextrose 2 gm in 50 mls @ 100 mls/hr 10/07/24 06:00 Ancef Duplex IVPB 10/07/24 23:59 PREOP VIK Tranexamic Acid/Sodium Chloride 1,000 mg in 100 mls @ 600 mls/hr 10/07/24 06:00 IVPB 10/07/24 23:59 PREOP VIK IV Miscellaneous Supplies 1 each 10/07/24 06:00 Iv Access IV 10/07/24 23:59 DIRECTED VIK Sodium Chloride 0 ml 10/07/24 06:00 Normal Saline Flush 10 Ml Syr IV 10/07/24 23:59 PRN PRN Sodium Chloride 0 ml 10/07/24 06:00 Normal Saline 10 Ml Vial IJ 10/07/24 23:59 DIRECTED PRN Sterile Water 0 ml 10/07/24 06:00 Water,Injection,Sterile 10 Ml Vial IJ 10/07/24 23:59 DIRECTED PRN PFSH Active Problems Active Problems: Problem Status Onset Code Posterior subcapsular age-related cataract of left eye Resolved H25.042 Cortical age-related cataract, left eye Resolved H25.012 Nuclear age-related cataract, left eye Resolved H25.12 Posterior subcapsular age-related cataract, right eye Resolved H25.041 Cortical age-related cataract, right eye Resolved H25.011 Nuclear age-related cataract, right eye Resolved H25.11 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 Trochanteric bursitis, left hip Acute M70.62 BPPV (benign paroxysmal positional vertigo) Acute H81.10 Weight loss Acute R63.4 Hypothyroidism Chronic E03.9 Essential hypertension Acute I10 Major depressive disorder Chronic F32.9 Medical History Medical History Diverticula of colon Precancerous skin lesion Nose, s/p FU Tx Cataracts, both eyes [place] Overweight 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 Osteopenia (05/2016) -2.3 Adenomatous colon polyp (02/2015) Infection of right prosthetic hip joint Surgical History Surgical History History of colonoscopy (~02/2024) History of total right knee replacement (11/2007) Hx of cholecystectomy (2013) History of left hip replacement (11/2005) History of right hip replacement (2011) Tobacco Smoking/Tobacco Use Status: Former Tobacco Use Passive smoking exposure: No Alcohol Alcohol Intake: current Alcohol intake frequency: holidays/special occasions only Substance Use Substance use: Never Substance use type: does not use Vital Signs and Lab Results Vital Signs Most Recent Vital Signs in EMR: Temp Pulse Resp BP Pulse Ox 36.3 C L 67 16 137/70 100 10/07/24 08:51 10/07/24 08:51 10/07/24 08:51 10/07/24 08:51 10/07/24 08:51 Lab Results Blood Type / Crossmatch: No Data to Display Complete Blood Count: White Blood Count 5.75 10^3/uL (4.4-10.8) 09/25/24 10:01 Red Blood Count 4.16 10^6/uL (3.93-5.22) 09/25/24 10:01 Hemoglobin 13.2 g/dL (11.2-15.7) 09/25/24 10:01 Hematocrit 39.3 % (36.0-46.0) 09/25/24 10:01 Platelet Count 291 10^3/uL (130-400) 09/25/24 10:01 Complete Metabolic Panel: Sodium 136 mmol/L (136-145) 09/25/24 10:01 Potassium 4.7 mmol/L (3.5-5.1) 09/25/24 10:01 Chloride 99 mmol/L (98-107) 09/25/24 10:01 Carbon Dioxide 31.0 mmol/L (21.0-32.0) 09/25/24 10:01 BUN 34 mg/dL (7-18) H 09/25/24 10:01 Creatinine 1.0 mg/dL (0.55-1.02) 09/25/24 10:01 Est GFR (CKD-EPI 2020) 59.12 (mL/min/1.73m2) 09/25/24 10:01 Calcium 9.9 mg/dL (8.5-10.1) 09/25/24 10:01 Glucose 93 mg/dL (74-106) 09/25/24 10:01 Liver Function Panel: No Data to Display Coagulation Panel: No Data to Display Cardiac Panel: No Data to Display Arterial Blood Gas: No Data to Display Venous Blood Gas: No Data to Display Pancreas Panel: No Data to Display Thyroid Panel: No Data to Display Infectious Disease: No Data to Display Blood Cultures: No Data to Display Toxicology Panel: No Data to Display Anesthesia Assessment and Plan Anesthesia History Personal History: No History of Anesthesia Complications Family History: No Family History of Anesthesia Complications Exercise Tolerance Exercise Tolerance: Metabolic Equivalents>4 Cardiac & Pulmonary Exam Cardiac Exam: Normal S1/S2 Heart Sounds Pulmonary Exam: Clear Bilateral Breath Sounds Implantable Cardiac Device Does patient have a Pacemaker or an ICD?: No Airway Exam Known Difficult Airway: No Mallampati Class: 2 Mouth Opening: Normal (> 3cm) Thyromental Distance: Greater than 3 cm Neck Range of Motion: Full ROM Neck Circumference: Thick Teeth Condition: Normal Dentition ASA Classification ASA Score: ASA 3 Emergency Case?: No NPO Status NPO Status: NPO Clears >2 hours, Solids >8 hours Anesthesia Plan Resuscitation Status: Full Code Anesthesia Technique: General Anesthesia Airway Planned: Endotracheal Tube Pain Management: Surgeon and patient request nerve block Monitors Used: Standard Monitors Preoperative Comments:: 74 yo female for TKA. Sig PMHx : HTN (enalapril, HCTz), vertigo, hypothyroid (on replacement), d epression (citalopram). former smoker, occ EtOH. Previous Anes: - cataract, midaz, prop, LMA 3 -> 4, no issues. - colo, prop, natural airway, no issues. Discussed the relation of her vertigo with spinal vs general and that I haven't found a definitive answer on which would be better in regards to that. She did just have the cataract with a GA and tolerated that well, so we discussed this may be the best option for her. Plan for preop ADCB and GAETT with HOB elevated throughout due to vertigo.
--- NOTE | 2024-10-07 07:34 | W.PM.DSUDISC ---
Date of service: 10/07/24 Discharge Plan Disposition Patient Disposition: Home Condition: Good Discharge Details Reason For Visit: L TKR Attending Provider: Pato Galindo Primary Care Provider: Edmundo Contreras Home Meds and New Rx's Prescriptions: New acetaminophen 500 mg tablet 1,000 mg PO TID Qty: 90 3RF aspirin 81 mg tablet,delayed release (DR/EC) 81 mg PO BID Qty: 60 0RF celecoxib 200 mg capsule 200 mg PO BID Qty: 60 0RF dexamethasone 4 mg tablet 4 mg PO DAILY Qty: 2 0RF docusate sodium 100 mg capsule 100 mg PO BID PRNQty: 14 0RF pantoprazole 40 mg tablet,delayed release (DR/EC) 40 mg PO DAILY Qty: 30 0RF gabapentin 300 mg capsule 300 mg PO QHS Qty: 14 0RF oxycodone 5 mg tablet 5 mg PO Q4H PRNQty: 18 0RF Continued enalapril maleate 20 mg tablet 40 mg PO DAILY Qty: 180 3RF rosuvastatin 5 mg tablet 5 mg PO DAILY Qty: 90 3RF fnfkczlw-waqijrf-jfju-lutein Tablet 1 tab PO DAILY levothyroxine 125 mcg tablet 125 mcg PO DAILY Qty: 90 3RF omega-3 fatty acids-fish oil 360-1,200 mg capsule 1 cap PO DAILY cholecalciferol (vitamin D3) 25 mcg (1,000 unit) capsule 25 mcg PO DAILY fexofenadine [Stephanie Allergy] 180 mg tablet 180 mg PO DAILY PRN Systane (PF) 0.4-0.3 % dropperette 1 drp ophthalmic (eye) BID-QID PRN citalopram 20 mg tablet 20 mg PO DAILY Qty: 90 3RF hydrochlorothiazide 25 mg tablet 25 mg PO DAILY Qty: 90 3RF Discharge Instructions Additional Instructions: Total Knee Discharge Instructions Activity: The most important activity is to walk and to work on gentle motion (both flexion and extension). You should try to take short walks a few times a day. It is important that when resting you work on keeping the knee straight. Avoid putting a pillow behind the knee as this will encourage flexion. Work on range of motion exercises as provided by Physical Therapy. - Start outpatient physical therapy within 2 weeks. - You should wear the GM hose on both legs for 2 weeks. You may remove these at night. You may also use any compression sock in place of the GM hose. - Utilize [employer] to review exercises, see videos on exercises and obtain basic information pertaining to your surgery and your recovery. Dressing: Remove the Stan wrap by 2 days after your surgery and put on the GM stocking given to you from the hospital. Keep the surgical dressing (underneath the STAN wrap) in place for at least one week. After the first week it may be removed and replaced with light gauze and tape or nothing. The wound and dressing may get wet after 3 days but avoid soaking the dressing or otherwise it will need to be changed. Many people prefer covering the dressing with cling wrap (saran wrap) to minimize it from getting soaked. If it gets wet, just pat dry. If it starts to peel off then it will need to be changed. Medications: - You should take Tylenol and anti-inflammatory Celebrex as your primary pain control medications. If the Celebrex is too expensive or not covered, please call the office for another alternative (Advil/Ibuprofen or Naproxen/Aleve) - You have been prescribed a stronger pain medication Oxycodone for breakthrough pain, take as needed as prescribed. - You have also been prescribed a stomach acid reduction agent Pantoprozole to help reduce stomach acid and reflux. - You have been prescribed Gabapentin to take at night for restlessness and nerve pain. - You will be taking Aspirin 81mg twice a day for DVT prevention unless instructed otherwise. - You have also been prescribed Decadron to take to control post-operative nausea and pain. You will start this tomorrow. - If you have constipation you should take Colace or Miralax (both ozeh-nww-fhlgiju). It takes most people 3-4 days to have a bowel movement. Follow-up: 2 weeks If you have any acute concerns or questions, please do not hesitate to contact the office at [phone]. You may contact Dr. Galindo with any questions after hours through the hospital at [phone] or on his cell phone at [phone]. Stand Alone Forms: Anesthesia Discharge Inst., Anes.Nerve Block Instructions, Maurice Ferrell ([facility]) Referrals: Pato Galindo MD [ [facility] STAFF PHYSICIAN] - 10/19/24 10:30 am Equipment/Supplies: Walker Activity:: Activity as Tolerated Shower/Bathe:: 72 hours Diet:: As Tolerated Discharge Orders Discharge Orders: Discharge Order (Routine); Ordered 10/07/24 Ordered By: Darius Young DS: Diagnosis Discharge Diagnosis (1) Left knee DJD: Status: Chronic
[2024-10-07] MEDS: Celecoxib 200 MG CAP 400 MG PO (09:03)
[2024-10-07] MEDS: Acetaminophen 500 MG TAB 1000 MG PO (09:03)
[2024-10-07] MEDS: Gabapentin 300 MG CAP PO (09:03)
[2024-10-07] MEDS: Lactated Ringers 1,000 ML 80 ML IV (09:22)
--- NOTE | 2024-10-07 10:18 | ANES.NERVE_ITS ---
Nerve Block Single Injection Procedure Date and Time Date Performed: 10/07/24 Procedure Start: 10:10 Location Where Procedure Performed Procedure Location: Day Surgery Unit Reason Performed: Postoperative Analgesia Requesting Provider: Pato Galindo Timeout Performed Timeout Performed: Yes Monitoring Used ECG, Blood Pressure and SpO2 Sterility Sterility: Hand Hygiene, Surgical Cap, Surgical Mask, Sterile Gloves and Chlorhexidine Sedation Given During Procedure Sedation Given (Indicate Dose Given): No Sedation given Patient Mental Status Patient Mental Status: Awake Nerve Block 1st Nerve Block: Laterality: Left Block Type: Adductor Canal Ultrasound Image Saved?: Yes Needle / Catheter Used: 120mm SonoPlex II Local Anesthetic Bolus (Indicate Dose Given): Lidocaine used for local infiltration of skin, Injected in 3-5ml increments after negative blood aspiration and Bupivacaine 0.25% Dose:: 12 mL Additives (Indicate Dose Given): None Ultrasound: Sterile probe cover and gel used Nerve Stimulator: Supplement to Ultrasound use and No twitch or parasth esia noted < 0.5 mA Paresthesia: None Procedure Tolerated: No Complications Procedure Outcome: Successful Procedure Comment: Multiple veins throughout thigh, needle path viewed without pressure to attempt to avoid missing large one, pt warned she my get a large bruise. Performed By: Andrew Conn
[2024-10-07] MEDS: ceFAZolin 2 GM/50 ML BAG IVPB (10:42)
[2024-10-07] MEDS: TRANEXAMIC ACID/SOD. CHL. 1,000 MG/100 ML BAG 600 MG IVPB (10:51)
--- NOTE | 2024-10-07 10:54 | W.PM.OP ---
Operative Note Operative Note PRE-OP DIAGNOSIS: Left Knee Osteoarthritis POST-OP DIAGNOSIS: same PROCEDURE: Left Total Knee Replacement SURGEON: Pato Galindo ASBESTOS MICROSCOPIST: Miky Young ANESTHESIA TYPE: General LMA/ETT Refer to Anesthesia Record PATHOLOGY: none sent TOURNIQUET TIME: 0 COMPLICATIONS: None Patient was transported to: PACU Patient's condition: stable Implants: 1. Depuy Attune Cementless Cruciate Retaining Femoral Component, Size 6 2. Depuy Attune Cementless Fixed Bearing Tibial Component, Size 5 3. Depuy Attune 6x7mm CR/FB Poly Indications: I have seen Analia in clinic for symptoms of knee arthritis, confirmed with radiographic findings. She has exhausted nonoperative methods and was having significant limitations in daily function and desired better function and less pain. I discussed the technical details of a knee replacement. I explained the risks of the procedure to include, but not limited to, bleeding, infection, pain, stiffness, fracture, damage to nerves and vessels, damage to muscles and tendons, loosening, need for repeat procedure, blood clot and cardiopulmonary demise. Despite these risks, Analia elected to proceed. Findings: There was significant signs of arthritis throughout the knee. Procedure Description: Analia was greeted in the preoperative holding area where the correct side was identified and marked. The consent was reviewed with the patient and signed. The history and physical was updated. All questions were answered. Preoperative medications were administered: Acetaminophen 1000mg, Celebrex 400mg, and Gabapentin 300mg. An adductor canal block was then administered by the anesthesia team in the DSU. Analia was taken back to the operating room. A general anesthestic was then administered. The patient was placed into the supine position on the operating room table. Posts were placed for positioning during the procedure. All bony prominences were well padded. Prophylactic antibiotics in the form of Cefazolin were administered. 1g of Tranxemic Acid was given intravenously within 30 minutes of incision. The left leg was then prepped with Chloraprep and draped in a standard fashion with impervious stockinette. A second prep with Chloraprep was performed prior to application of Iodine impregnated skin protection. A timeout to confirm correct identity, side and site, procedure, allergies, anesthesia, and medical concerns was performed. With the knee in some flexion, a midline incision was made overlying the knee. Full thickness skin flaps were raised once the extensor mechanism was encountered. These were raised medially and laterally. Any bleeding was controlled with electrocautery. Once the extensor mechanism was fully exposed, a medial parapatellar arthrotomy was performed in a flexed position. All bleeding from the arthrotomy and the geniculate arteries was coagulated. A medial subperiosteal peel was performed with electrocautery to the midcoronal plane. The fat pad was removed while keeping the patellar tendon protected. The anterior distal femur synovium was removed for later visualization. The ACL and PCL were resected and the anterior horn of the lateral meniscus was transected. The knee was then flexed with the patella everted. Large osteophytes from the tibia were removed. Large osteophytes from the femur were removed. Using a step drill, and based on preoperative templating, the femoral canal was entered. This was done with a step drill without any difficulty. The intramedullary distal femoral cut guide was inserted, set to a 5 degree valgus cut and 9mm cut thickness. The distal femoral cut guide was then held in position and pinned. With the soft tissues protected, the distal cut was performed. This was passed over a few times to ensure a planar cut. I then turned attention to the tibia. The extramedullary guide was placed onto the leg. The distal aspect was slid medial to adjust for position of center of ankle and stay in line with shaft of the tibia. Approximately 3-5 degrees of posterior slope was kept in the proximal cutting guide. The center of the guide was aligned with the PCL. The stylus was used to assess cut thickness. The medial side, most involved side, was set for a 6mm cut, corresponding to 7mm laterally. This was then held in position and pinned into place with 2 additional pins and a cross pin for stability. The medial and lateral collateral ligaments were protected and the cut was performed. With this completed, it was assessed and noted to be of appropriate dimensions. The guide was removed. A spacer block was inserted and the knee was brought into extension. The 6mm spacer block provided full extension, without hyperextension and with stability of both the medial and lateral collateral ligaments was assessed. The pins from the femur and the tibia were then removed. The distal femur was then sized. The anterior stylus was placed onto the lateral ridge of the anterior femur. This indicated a size 6 femur. The external rotation of the guide was adjusted to 3 degrees to match the epicondylar axis, perpendicular to Vera?s line. The 4-in-1 cutting guide was the placed. The posterior medial femur cut was evaluated and appeared of good thickness. The spacer block was inserted underneath the cutting guide and stability was confirmed in 90 degrees of flexion. An sophy wing was used to confirm appropriate position of the anterior cut to avoid notching. This cutting guide was ensured to be flush on the cut surface and then pinned into place with headed pins. While protecting the soft tissues, quad tendon, and collateral ligaments, the anterior and posterior cuts were performed with a saw. The central two pins were removed and the posterior and anterior chamfers were cut next. The notch-cutting guide was placed. This was pinned to lateralize the femoral component as much as possible while keeping it flush on the cut surface. This was then pinned into position. A reciprocating saw was used to make the notch cut. A rasp smoothed the cut surfaces. The medial and lateral menisci were removed. A trial femoral component was then inserted, impacted down to the cut surfaces, and the lug holes were drilled. A provisional trial tibial component was placed and the knee was brought through range of motion. The polyethylene was trialed until there was good flexion and extension with excellent stability to the medial and lateral collaterals. The patella was tracking without thumbs. A size 7mm polyethylene component provided the best range of motion and stability with less than 2mm gapping with medial and lateral stress and full extension without significant hyperextension. The tibial cut surface was fully exposed. The tibia was then sized as a 5. The tibia had been previously marked during trialing to correspond to the center of the tibial component to help with rotation. The trial was aligned to this miky, approximately rotated to the medial 1/3rd of the tibial tubercle. The trial was pinned into place. The tibia was prepared with a reamer and a keel punch and lug holes. The trial components were removed. The final components were opened on the back table. The periosteal and capsular tissues, especially posteriorly, around the knee were then systematically injected with a periarticular cocktail consisting of 246mg of Ropivacaine, 0.5mg of Epinephrine, 0.08mg of Clonidine, and 30mg of Ketorolac, diluted to 100cc. On the back table, the implants were opened. The cementless knee components were placed. Starting with the tibial component, the tibia was subluxed anteriorly and the lug holes of the component were lined up. The tibia was then impacted with an impactor and mallet until the tibial component was in contact with the tibia. Then, the femoral component was inserted. The lug holes were aligned and the component was impacted into position. The final polyethylene was inserted and impacted into position. The knee was irrigated with Surgiphor Betadine solution. This was allowed to sit in the knee for 3 minutes and then it was irrigated out with saline. The patella was tracking with a no-thumbs technique. A synovectomy was performed and prominence of the lateral patellar facet was removed. The capsule was then reapproximated with a No. 1 Vicryl at multiple locations. The capsule was finally closed with a No. 2 Stratafix, barbed suture. Deep tissues were then reapproximated with 0 Vicryl and 2-0 Vicryl. The skin was closed with a running 3-0 Monocryl in a subcuticular fashion. This was reinforced with skin glue. A Mepilex silver dressing was applied along with a nssr-up-nevwt JASEN wrap. A CryoCuff was applied. Analia was transferred to the hospital bed without difficulty an suffering no apparent complication. She has a good prognosis. Physical therapy will start today and without restrictions, weight-bearing as tolerated. Aspirin 81mg BID will be used for DVT prophylaxis. Date of Procedure: 10/07/24
[2024-10-07] MEDS: fentaNYL 100 MCG/2 ML VIAL IVP ×2 (12:41→12:55)
[2024-10-07] MEDS: HYDROmorphone 2 MG/ML SYR IVP (13:13)
[2024-10-07] MEDS: Normal Saline 10 ML VIAL IJ (13:13)
--- NOTE | 2024-10-07 13:40 | W.ANESPOSTOP ---
Postoperative Evaluation Date, Time and Location Date Performed: 10/07/24 Time Performed: 13:40 Patient Location: PACU Vital Signs Most Recent Imported Vital Signs: Most Recent Vital Signs Temp Pulse Resp BP Pulse Ox 36.4 C L 55 L 12 145/67 H 92 10/07/24 13:30 10/07/24 13:16 10/07/24 13:16 10/07/24 13:16 10/07/24 13:16 Pain Score Most Recent Pain Score: Most Recent Pain Score Pain Level 5 10/07/24 13:30 Assessment Mental Status: Awake (Alert & Oriented to Patient Baseline) Airway and Respiratory Function: Patent airway with normal (patient baseline) respiratory exam Cardiovascular Function: Hemodynamically Stable Hydration Status: Adequately Hydrated Nausea & Vomiting: No Nausea or Vomiting Pain: Pain is tolerable per patient Peripheral Nerve Block: Regional nerve block not resolved at time of post operative discharge Postoperative Comments:: complaining of stomach pain/indigestion, usually takes tums for this discomfort, famotidine ordered.
[2024-10-07] MEDS: FAMOTIDINE 20 MG/50 ML BAG 200 MG IVPB (14:05)
[2024-10-07] MEDS: oxyCODONE 5 MG TAB PO (14:19)
[2024-10-07] MEDS: Tranexamic Acid 650 MG TAB 1300 MG PO (14:20)
--- NOTE | 2024-10-07 15:08 | IN_ITS ---
PT Notes Visit Reasons: L TKR Physical Therapy Day Surgery Initial Evaluation Date: 10/07/2024 Referring Doctor: NIOCLE Romero PT Orders: PT CONSULT: S/P Ortho Surgery Precautions: WBAT on left LE with AD. Patient Profile/Admitting Diagnosis: Analia is a 74-year-old female with degenerative joint disease of the left knee status post left total knee arthroplasty on postoperative day 0. 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 Flight of steps appropriate to the second floor of house where the bedroom is. Independent of all aspects of ADLs prior to surgery. Equipment Owned/DME: [facility] Subjective: Denied headache, chest pain, and lightheadedness throughout session Objective: General Observation: JASEN wraps to left LE. Cryocuuff to left knee. TDS to right leg and foot. Mental Status: A and O x 4 Pain: 2-3/10 in the L knee ROM Right Lower Extremity: Hip flexion WFL. Hip abduction WFL. Knee flexion WFL. Ankle dorsiflexion WFL. Ankle plantarflexion WFL. Left Lower Extremity: Hip flexion WFL. Hip abduction WFL. Knee flexion 10 degrees to. Knee extension -10 degrees. 100 degreesAnkle dorsiflexion WFL. Ankle plantarflexion WFL. Strength: Right Lower Extremity: Hip flexors 5/5. Hip abductors 5/5. Knee flexors 5/5. Knee extensors 5/5. Ankle dorsiflexors 5/5. Ankle plantarflexors 5/5. Left Lower Extremity:Hip flexors 4/5. Hip abductors 4/5. Knee flexors 3-/5. Knee extensors 3-/5. Ankle dorsiflexors 5/5. Ankle plantarflexors 5/5. Sensation: Intact as to pain and light pressure in BLE Bed Mobility/Transfers: Minimal cueing provided for use of B hands as needed for support, movement sequence, AD management, and posture to reduce fall risk and minimize pain report Supine to sit stand by assist Sit to stand contact guard assist with FWW Stand to sit standby assist with FWW Bed to chair standby assist with FWW Gait: Facilitated safe and correct performance of loss of level surface ambulation covering a distance of 150 feet using step through gait pattern requiring only standby assist and minimal verbal cueing for limb movement sequence AD management, weight distribution onto AD, and posture to minimize pain reported reduce fall risk. Stairs: Guided patient with safe and correct negotiation of 3 x 4 inch steps and 2 x 6 inch steps while holding onto rail and using single-point cane on the other hand with step to gait pattern requiring minimal verbal sequence, hand placement, increased flexion on the left with each ascent, and posture to minimize pain reported reduce fall risk. Balance: Static Sitting: Normal Dynamic Sitting: Normal Static Standing: Fair Dynamic Standing: Fair Special Tests: Mobility Limitations Standardized Measure [facility]-P[facility] 6 clicks Basic Mobility Inpatient Short Form: Raw Score: 23 CMS Score: 11% deficit Informed Consent/Education: Patient instructed in purpose of PT consult. Packet containing TKA exercise protocol has been given to patient. Education and training on initial set of exercises that can be done at home have been completed with patient. Trained patient with correct performance of exercises below to maximize motor control, joint flexibility, soft tissue extensibility of the L knee musculature: Access Code: [email or web address] URL: [email or web address] Date: 10/07/2024 Prepared by: Selin Lr Exercises - Supine Quad Set - 1 x daily - 7 x weekly - 1 sets - 10 reps - 5 hold - Supine Heel Slide - 1 x daily - 7 x weekly - 1 sets - 10 reps - 5 hold - Supine Ankle Pumps - 1 x daily - 7 x weekly - 1 sets - 10 reps - 5 hold - Small Range Straight Leg Raise - 1 x daily - 7 x weekly - 1 sets - 10 reps - 5 hold - Seated September - x daily - 7 x weekly - 1 sets - 10 reps - 5 hold Assessment: Patient requires the use of a front wheeled walker for mobility ADL performance to maximize independence reduce fall risk. Patient presents with clinical signs and symptoms consistent with current/admitting diagnoses that have resulted to mobility limitations, gait instability, generalized weakness, and impairment of motor control as demonstrated by the following impairment level findings: 1. Decreased strength to left knee major muscle groups 2. Impaired standing balance 3. Limitation of joint range of motion in left knee Impairments are contributing to the following functional limitations: 1. Inability to safely ambulate without assistive device 2. Increase completion time for mobility ADL performance 3. Increased fall risk Patient is assessed as a 84225 moderate complexity based on the following: History: 74-year-old female with impairment level findings, functional limitations, and past medical history as indicated above Examination: Demonstrable impairment in strength, balance, and mobility level with underlying impairments and functional limitations as documented above Presentation: Evolving Decision Makin moderate complexity Goals: N/A. PT evaluation and 1-2 treatment sessions only for functional mobility training using recommended AD and for HEP instruction. Plan of Care/Treatment Plan: N/A. PT evaluation and 1-2 treatment session only for functional mobility training using recommended AD and for HEP instruction. DISCHARGE RECOMMENDATIONS: Home when medically cleared by orthopedic surgeon. Recommend outpatient PT services in order to optimize functional mobility outcomes and facilitate return to independent community ambulation without an assistive device. TREATMENT CODE/TIME: 9712 x 24 minutes for 1 unit (15:08?15:32). Thank you for the opportunity to participate in the care of this patient. Selin Lr PT, DPT, CLT [facility] [place], [place]
== END 2024-10-07 16:18 | disposition home or self-care (01) ==
LOC: SUR 08:22
PROVIDERS: PCP Family Medicine; Visit Provider Student in an Organized Health Care Education/Training Program
PROC: (CPT 27447; principal; 2024-10-07 11:30)
DX: M17.12 Unilateral primary osteoarthritis, left knee (principal); G89.18 Other acute postprocedural pain
CPT/HCPCS: 27447; 64447; 97162; C1776; J0665; J0690; J1100; J1171; J2371; J2405; J2704; J3010

== ENCOUNTER 2024-10-19 14:52 | Outpatient (CLI) | payer MEDICARE, BC, SELFPAY ==
--- NOTE | 2024-10-19 10:30 | DI.RAD_ITS ---
Exam(s) XR KNEE LT 1V XR STANDING ALIGNMENT EXAM: XR STANDING ALIGNMENT CLINICAL HISTORY: 1ST POST OP L TKA. TECHNIQUE: 2D digital imaging was performed. Standing AP views were performed from the pelvis throu gh the ankles. COMPARISON: CR XR STANDING ALIGNMENT from 09/25/2024 CR XR KNEE LT 1V from 10/19/2024 FINDINGS: BONES: No acute fracture is present. No bony destructive lesion is seen. Leg length discrepancy: Mild overall leg length discrepancy. JOINTS: Knees: Stable appearance of right knee prosthesis. Interval placement left total knee prosth esis which shows satisfactory alignment. The ankle joints are unremarkable. Hips: Bilateral hip prostheses appear stable. SOFT TISSUE: Lower leg edema, greater on the left. IMPRESSION: Status post placement of left knee prosthesis. Mild leg length discrepancy. DATA REPOSITORY: RADIATION DOSE DELIVERED:
== END 2024-10-19 14:53 | disposition home or self-care (01) ==
LOC: DIORS 14:52
PROVIDERS: PCP Family Medicine; Referring Provider Family Medicine; Visit Provider Student in an Organized Health Care Education/Training Program
DX: Z96.652 Presence of left artificial knee joint (principal); Z47.1 Aftercare following joint replacement surgery
CPT/HCPCS: 99024; 73560; 77073

== ENCOUNTER → 2024-11-16 10:56 | Outpatient (BNVA) | payer MEDICARE, BC, SELFPAY | PROVIDERS: PCP Family Medicine; Referring Provider Family Medicine; Visit Provider Student in an Organized Health Care Education/Training Program | DX: Z47.1 Aftercare following joint replacement surgery (principal); Z96.652 Presence of left artificial knee joint | CPT/HCPCS: 99024 ==

== ENCOUNTER → 2024-12-28 11:07 | Outpatient (BNVA) | payer MEDICARE, BC, SELFPAY | PROVIDERS: PCP Family Medicine; Referring Provider Family Medicine; Visit Provider Physician Assistant | DX: Z47.1 Aftercare following joint replacement surgery (principal); Z96.652 Presence of left artificial knee joint | CPT/HCPCS: 99024 ==

== ENCOUNTER 2025-06-14 12:34 | Outpatient (REF) | payer MEDICARE, BC, SELFPAY | END 2025-06-14 12:35 | disposition home or self-care (01) | LOC: LBN 12:34 | PROVIDERS: PCP Family Medicine; Visit Provider Family Medicine | DX: R30.0 Dysuria (principal); R35.0 Frequency of micturition; R39.15 Urgency of urination | CPT/HCPCS: 87086 ==

== ENCOUNTER 2025-06-21 00:45 | Outpatient (CLI) | payer MEDICARE, BC, SELFPAY ==
[2025-06-21 10:47] LABS: Anion Gap 9.2 mmol/L (3-11); BUN 30 mg/dL (9-23); CO2 27.3 mmol/L (20.0-31.0); Calcium 9.2 mg/dL (8.3-10.6); Chloride 98 mmol/L (98-107); Glucose 66 mg/dL (74-106); Potassium 4.0 mmol/L (3.5-5.1); Sodium 135 mmol/L (136-145)
[2025-06-21 10:49] LABS: TSH (W/Ref FT4) 1.74 uIU/mL (0.55-4.78)
== END 2025-06-21 00:46 | disposition home or self-care (01) ==
LOC: LBO 00:45
PROVIDERS: PCP Family Medicine; Visit Provider Family Medicine
DX: E03.9 Hypothyroidism, unspecified (principal); I10 Essential (primary) hypertension
CPT/HCPCS: 36415; 80048; 84443